=== PATIENT | male | born 1985 | race Caucasian/White ===

== ENCOUNTER → 2020-04-01 11:15 | Outpatient (CLI) | payer OTHER, SELFPAY ==
--- NOTE | 2020-04-01 11:19 | RAD_ITS ---
STUDY: X-RAY - LEFT HAND, ATTENTION INDEX FINGER REASON FOR EXAM: Male, 35 years old. SMASHING INJURY YESTERDAY TECHNIQUE: 3 view(s) of the finger were obtained. COMPARISON: None. FINDINGS: Normal metacarpal head. Normal metacarpophalangeal joint. Normal proximal phalanx. Normal middle phalanx. Normal distal phalanx. Normal proximal interphalangeal joint. Normal distal interphalangeal joint. Soft tissue swelling. RAD/Finger(s) Min 2 Views IMPRESSION: Soft tissue swelling. Electronically Signed: Donnie Gonzalez, at 12:51 EDT , Service support ,
== END ==
PROVIDERS: PCP Family Medicine; Visit Provider Physician Assistant
DX: S69.92XA Unspecified injury of left wrist, hand and finger(s), initial encounter (principal); W23.0XXA Caught, crushed, jammed, or pinched between moving objects, initial encounter
CPT/HCPCS: 73140